=== PATIENT | female | born 1970 | race Caucasian/White ===

== ENCOUNTER 2024-02-11 20:26 | Emergency (ER) | payer BC, SELFPAY ==
[2024-02-11 20:36] VITALS: BP 159/99
--- NOTE | 2024-02-11 22:56 | ED.GENMED ---
History of Present Illness
General
Chief Complaint: Skin Problem
Source: patient
Time Seen by Provider: 02/11/24 22:48
Travel History
Have you had any contact with someone who has COVID-19?: No
Do you have any symptoms of coronavirus? Fever > 100 degrees, chills, cough, shortness of breath, sore throat, loss of taste or smell, muscle aches, or headache?: No
History of Present Illness
History of Present Illness:
54-year-old female presenting to the emergency department for evaluation after she was at her nail salon that she has been going to for many years when she was soaking her feet in the tub and noticed a sore on the inner aspect of her left ankle.
The salon started to clean it and it appeared to cause a wound/multiple superficial abrasions to the skin that it started to bleed. They wrapped the area which the patient states started to look black and then decided to come to the ER for further
evaluation. She notes a little bit of a burning sensation to the area but otherwise has no other concerns. She has no history of similar and states she is going to the salon many times over the years without any similar reactions. No other
concerns.
Past History
Past History
ED Past Medical History: None
ED Past Surgical History: Cholecystectomy and
Social History
Tobacco: Non-smoker
Alcohol: None
Drug: None
Personal:
Living: with family
Review of Systems
Review of Systems
All Other Systems: ROS reviewed and negative except as documented in HPI and ROS
Phy Exam
Physical Exam
Physical Exam:
GENERAL: Alert , in no apparent distress
EYE: conjunctiva clear
Head: Normocephalic atraumatic
NECK: Supple,
ENT: mmm.
LUNGS: no acute respiratory distress
NEUROLOGICAL: Alert and oriented
SKIN: Warm and dry, superficial wounds noted to the inner aspect of the left ankle with some mild blotchy erythema, nontender, no active bleeding
MUSCULOSKELETAL: well perfused.
PSYCH: Normal and appropriate interaction.
Scores
Heart Failure Risk
Heart Failure Risk Score: Not Applicable
Heart Score for Chest Pain Patients
STEMI patient?: Not applicable
Withdrawal Assessment of Alcohol
Withdrawal Assessment Completed?: Not applicable
Course
Vital Signs
Initial and Last Documented VS:
Initial Vital Signs
Temp Pulse Resp BP Pulse Ox
98.3 F 93 18 159/99 95
02/11/24 20:36 02/11/24 20:36 02/11/24 20:36 02/11/24 20:36 02/11/24 20:36
Last Documented Vital Signs
Temp Pulse Resp BP Pulse Ox
98.3 F 93 18 159/99 95
02/11/24 20:36 02/11/24 20:36 02/11/24 20:36 02/11/24 20:36 02/11/24 20:36
MDM/Problems Addressed
Differential Diagnosis Includes:
Contact dermatitis, skin abrasion, currently no concern for infection given symptoms just started couple hours prior to arrival to the emergency department
MDM/Problems Addressed:
54-year-old female presenting emergency department for evaluation of wound to the left medial ankle after she was getting a pedicure. She has gone to the salon many times without any previous issues. Does not appear to be an allergic reaction but
unclear as to the etiology of the superficial wounds. No symptoms to be suggestive of a necrotizing fasciitis. Patient is otherwise immunocompetent and well-appearing. Prescription for Be given. Advised patient continue to monitor and provide
wound care. She has an appointment tomorrow with a vascular specialist and states she will follow-up with them tomorrow.
*Pulse Oximetry
Patient hypoxic: no
*Critical Care Note
Total Time (30-74mins, 75-104mins- exclusive of procedures): Not Applicable
ED Attending Note
-
Portions of this chart may have been created with voice recognition software.� Occasional wrong word or��sound alike� substitutions may have occurred due to the inherent limitations of voice recognition software.
Discharge Plan
Departure
Patient Disposition: Home (Routine Discharge)
Date of Disposition: 02/11/24
Time of Disposition: 22:56
Patient with high blood pressure during this ER visit?: Yes
Discharge Problem:
Wound of left ankle
Instructions: Wound Care (DC)
Prescriptions:
New
cephalexin 500 mg tablet
500 mg PO BID 7 Days Qty: 14 0RF
Interventions
Interventions:
*Risk Screen - Suicide Last Done: 02/11/24 20:36
*General Assessment Last Done: 02/11/24 20:36
*Neglect/Abuse Screening Last Done: 02/11/24 20:36
*Nursing Disposition Last Done: 02/11/24 23:07
ED-Skin Assessment Last Done: 02/11/24 23:07
Discharge Date and Time
Print Language: MAORI
[2024-02-11 23:07] VITALS: BP 128/83
== END 2024-02-11 23:09 | disposition home or self-care (01) ==
LOC: EMR 20:26
PROVIDERS: EMERGENCY PHYSICIAN Student in an Organized Health Care Education/Training Program; FAMILY PHYSICIAN Nurse Practitioner Adult Health
DX: S91.002A Unspecified open wound, left ankle, initial encounter (principal); X58.XXXA Exposure to other specified factors, initial encounter; R03.0 Elevated blood-pressure reading, without diagnosis of hypertension
CPT/HCPCS: 99282

== ENCOUNTER → 2024-04-20 10:13 | Outpatient (REF) | payer BC, SELFPAY | LOC: HWRAD 10:13 | PROVIDERS: ATTENDING PHYSICIAN Internal Medicine Endocrinology, Diabetes & Metabolism; FAMILY PHYSICIAN Nurse Practitioner Adult Health | DX: Z13.820 Encounter for screening for osteoporosis (principal); E03.9 Hypothyroidism, unspecified; R73.03 Prediabetes; E55.9 Vitamin D deficiency, unspecified; E04.2 Nontoxic multinodular goiter; I10 Essential (primary) hypertension | CPT/HCPCS: 76536; 77080 ==